=== PATIENT | female | born 1955 | race Caucasian/White ===

== ENCOUNTER → 2016-11-20 | Outpatient (CLI) | payer OTHER ==
[~2016-11-20] MED LIST: IOPAMIDOL (ISOVUE 370) 100 ML BTL IV ONE
== END ==
LOC: FIMAGING 15:30
PROVIDERS: ATTEND Internal Medicine Infectious Disease
DX: R00.2 Palpitations (principal); R06.02 Shortness of breath; R53.1 Weakness; M79.89 Other specified soft tissue disorders
CPT/HCPCS: Q9967